=== PATIENT | male | born 1980 | race Caucasian/White ===

== ENCOUNTER 2019-05-31 13:35 | Emergency (ER) | payer BC, SELFPAY ==
[2019-05-31 14:13] VITALS: BP 116/82; PULSE 80; RESP 20; TEMP 37; O2SAT 100
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
[2019-05-31 14:20] VITALS: BP 134/80
--- NOTE | 2019-05-31 14:26 | ECG_ITS ---
Measurements Intervals Walker Rate: 70 P: 45 AR: 130 QRS: 32 QRSD: 85 T: 17 QT: 364 QTc: 395 Interpretive Statements SINUS RHYTHM BORDERLINE ST-T WAVE ABNORMALITY- INFERIOR LEADS BASELINE ARTIFACT- I, II, III, AVR, AVL, AVF BORDERLINE ECG Electronically Signed On 05-31-2019 19:00:42 CONTRACT NEGOTIATION SPECIALIST by Heber Buckner D.O.
--- NOTE | 2019-05-31 14:31 | PC.NURSE ---
1413- ems called, and pt understanding that he needs to be transported by ems since he is still having chest pain. spouse verbalized understanding.
== END 2019-05-31 14:20 | disposition short-term general hospital (02) ==
PROVIDERS: Emergency Provider Nurse Practitioner Family
DX: R07.9 Chest pain, unspecified (principal); I10 Essential (primary) hypertension
CPT/HCPCS: 93005; 99205; A9270; G0463

== ENCOUNTER 2019-05-31 14:44 | Emergency (ER) | payer SELFPAY ==
--- NOTE | ~2019-05-31 | XR_ITS ---
XR chest 2V DATE: 05/31/2019 15:00 INDICATION: Mid chest pain. Shortness of breath. TECHNIQUE: PA and lateral views COMPARISON: None FINDINGS: Normal heart size. No hilar or mediastinal enlargement. 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 No active infiltrate or consolidation, pleural effusion or pulmonary vascular congestion o r pneumothorax. No hilar or mediastinal enlargement. Mild dextro scoliosis of the thoracolumbar spine. Surgical clips, right upper quadrant, consistent with cholecystectomy. IMPRESSION: No active cardiopulmonary disease Reviewed, dictated and finalized at location A. TY LIBRARY DIRECTOR
[2019-05-31 14:41] VITALS: BP 112/77; PULSE 87; RESP 20; TEMP 36.7; O2SAT 100
--- NOTE | 2019-05-31 14:51 | ECG_ITS ---
Measurements Intervals Bruno Rate: 86 P: 58 NH: 120 QRS: 16 QRSD: 98 T: 46 QT: 352 QTc: 423 Interpretive Statements SINUS RHYTHM NORMAL ECG Electronically Signed On 06-01-2019 7:56:42 [employer]OMOBILE [employer]ICE STATION ATTENDANT by Heber Buckner D.O.
[2019-05-31 15:17] LABS: Basophils Percent Auto 0.3 % (0.2-1.2); Eosinophils Absolute Auto 0.1 K/mm3 (0-0.3); Hematocrit 42.5 % (42.0-52.0); Hemoglobin 14.5 g/dL (14.0-18.0); Immature Granulocyte Absolute 0.02 K/mm3 (0.00-0.031); Immature Granulocyte Percent A 0.2 % (0-0.5); Lymphocytes Absolute Auto 1.03 K/mm3 (0.9-3.2); Lymphocytes Percent Auto 11.9 % (18.3-44.2); Mean Corpuscular HGB Conc 34.1 g/dl (32-36); Mean Corpuscular Hemoglobin 27.7 pg (26-34); Mean Corpuscular Volume 81.3 fl (80-100); Mean Platelet Volume 11.1 fl (7.4-10.4); Monocytes Absolute Auto 0.6 K/mm3 (0.1-0.6); Monocytes Percent Auto 6.8 % (2.6-8.5); Neutrophils Absolute Auto 6.9 K/mm3 (1.3-6.7); Neutrophils Percent Auto 79.8 % (45.5-73.1); Platelet Count Result 207 k/mm3 (150-375); Red Blood Count 5.23 M/mm3 (4.6-6.20); Red Cell Distribution Width 13.1 % (11.5-14.5); White Blood Count 8.7 K/mm3 (4.5-10.0)
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
[2019-05-31 15:28] LABS: Prothrombin Time 12.5 Seconds (11.1-14.7)
[2019-05-31 15:29] LABS: Blood Urea Nitrogen 9 mg/dL (9-20); Calcium 9.8 mg/dL (8.4-10.2); Carbon Dioxide 25 mmol/L (22-30); Chloride 102 mmol/L (98-107); Estimated CRCL calculation 113 ml/min; Estimated Glomerular Filt Rate > 60; Glucose 99 mg/dL (75-110); Partial Thromboplastin Time 23.8 SECONDS (22.3-36.8); Potassium 3.8 mmol/L (3.4-5.0); Sodium 138 mmol/L (137-145)
[2019-05-31 15:40] LABS: Troponin I < 0.012 ng/mL (0.000-0.034)
[2019-05-31 16:00] VITALS: BP 114/70; PULSE 71; RESP 16; O2SAT 95
[2019-05-31 16:19] LABS: D Dimer 0.31 ug/mL (<0.48)
[2019-05-31 16:24] LABS: Cholesterol 227 mg/dL (0-200); HDL Direct 36 mg/dL; Triglycerides 247 mg/dL (<150)
[2019-05-31 16:35] LABS: LDL Cholesterol Direct 157 mg/dL
[2019-05-31 16:45] VITALS: BP 122/77; PULSE 87; RESP 20; O2SAT 98
[2019-05-31 17:10] VITALS: BP 100/52; PULSE 75; RESP 16; O2SAT 98
== END 2019-05-31 17:10 | disposition left against medical advice (07) ==
PROVIDERS: Emergency Provider Emergency Medicine
DX: R07.9 Chest pain, unspecified (principal); R55 Syncope and collapse
CPT/HCPCS: 36415; 71046; 80048; 80061; 84484; 85025; 85380; 85610; 85730; 93005; 99284